=== PATIENT | male | born 1995 | race Caucasian/White ===

== ENCOUNTER 2021-02-17 11:20 | Emergency (ER) | payer BC ==
[2021-02-17] MEDS ORDERED: Sodium Chloride 0.9% 10 ML Syringe FLUSH PRN (11:24)
[2021-02-17] MEDS ORDERED: cefTRIAXone 1 GM in Sodium Chloride 0.9% 50 ML IV STA (12:19)
[2021-02-17] MEDS ORDERED: Meclizine 25 MG Tab PO STA (12:24)
--- NOTE | 2021-02-17 12:25 | EDM.PDOC ---
ED HPI GENERAL MEDICAL PROBLEM - General Chief Complaint: Lower Extremity Injury/Pain Stated Complaint: LEFT LEG PAIN/ DIZZINESS Time Seen by Provider: 02/17/21 11:30 Source of Information: Reports: Patient History Limitations: Reports: No Limitations - History of Present Illness INITIAL COMMENTS - FREE TEXT/NARRATIVE: Patient presented to the ED because of dizziness which started at 2 am, tinnitus, chills. He also c/o left inguinal pain,sharp, worse with movement. He has been lifting 50 lb potato bags at work before the pain occurred. - Related Data Allergies Allergy/AdvReac Type Severity Reaction Status Date / Time No Known Allergies Allergy Verified 02/17/21 11:28 Home Meds: Home Meds Meclizine HCl 25 mg PO Q6H PRN #15 tablet 02/17/21 [Rx] cephALEXin [Keflex] 500 mg PO Q8H #30 cap 02/17/21 [Rx] Review of Systems - Review of Systems Review Of Systems: See Below Constitutional: Reports: No Symptoms Ears: Reports: No Symptoms Nose: Reports: No Symptoms Mouth/Throat: Reports: No Symptoms Respiratory: Reports: No Symptoms Cardiovascular: Reports: No Symptoms GI/Abdominal: Reports: No Symptoms Genitourinary: Reports: No Symptoms Musculoskeletal: Reports: No Symptoms, Leg Pain Skin: Reports: No Symptoms Neurological: Reports: No Symptoms Psychiatric: Reports: No Symptoms ED EXAM, GENERAL - Physical Exam Exam: See Below Exam Limited By: No Limitations General Appearance: Alert, No Apparent Distress Eye Exam: Bilateral Eye: PERRL Ears: Normal External Exam, Normal Canal Nose: Normal Inspection, Normal Mucosa, No Blood Throat/Mouth: Normal Inspection, Normal Lips Head: Atraumatic, Normocephalic Neck: Normal Inspection, Supple, Non-Tender, Full Range of Motion Respiratory/Chest: No Respiratory Distress, Lungs Clear, Normal Breath Sounds, No Accessory Muscle Use, Chest Non-Tender Cardiovascular: Normal Peripheral Pulses, Regular Rate, Rhythm, No Edema, No JVD, No Murmur, No Rub GI/Abdominal: Normal Bowel Sounds, Soft, Non-Tender, No Organomegaly, No Distention, No Abnormal Bruit Back Exam: Normal Inspection, Full Range of Motion Extremities: Normal Inspection, Other (lenderness left thigh-medial aspect) Neurological: Alert, CN II-XII Intact Psychiatric: Normal Affect, Normal Mood Skin Exam: Warm, Erythema Course - Vital Signs Text/Narrative:: Lab/EKG/Head Ct result was reviewed and discussed with patient and his mom Rocephin 1gm IV Meclizine 50 mg PO x1 Last Recorded V/S: Last Vital Signs Temp 36.7 C 02/17/21 11:20 Pulse 97 02/17/21 11:20 Resp 18 02/17/21 11:20 BP 120/53 L 02/17/21 11:20 Pulse Ox 95 02/17/21 11:20 - Orders/Labs/Meds Orders: Active Orders 24 hr Category Date Time Status EKG Documentation Completion [RC] ASDIRECTED Care 02/17/21 11:24 Active Head wo Cont [CT] Stat Exams 02/17/21 11:24 Taken Sodium Chloride 0.9% [Saline Flush] Med 02/17/21 11:24 Active 10 ml FLUSH ASDIRECTED PRN cefTRIAXone [Rocephin] 1 gm Med 02/17/21 12:19 Ordered Sodium Chloride 0.9% [Normal Saline] 50 ml IV NOW Saline Lock Insert [OM.PC] Routine Oth 02/17/21 11:24 Ordered EKG 12 Lead [EK] Routine Ther 02/17/21 11:24 Ordered Medication Orders Sodium Chloride (Sodium Chloride 0.9% 10 Ml Syringe) 10 ml FLUSH ASDIRECTED PRN PRN Reason: Keep Vein Open Meds: Medications Generic Name Dose Route Start Last Admin Trade Name Freq PRN Reason Stop Dose Admin Sodium Chloride 10 ml 02/17/21 11:24 Sodium Chloride 0.9% 10 Ml Syringe FLUSH ASDIRECTED PRN Keep Vein Open Departure - Departure Time of Disposition: 13:00 Disposition: Home, Self-Care 01 Condition: Good Clinical Impression: BPV (benign positional vertigo), Cellulitis, Eczema - Discharge Information Prescriptions: cephALEXin [Keflex] 500 mg PO Q8H #30 cap Meclizine HCl 25 mg PO Q6H PRN #15 tablet PRN Reason: vertigo Instructions: Cellulitis, Adult, [id number] Additional Instructions: Please read discharge instructions on cellulitis, eczema and vertigo Rest for the day Increase oral fluids Meclizine 25 mg every 6 hours as needed for vertigo Keflex 500 mg 3 times daily for 10 days [id number] up as needed Sepsis Event Note (ED) - Evaluation Sepsis Screening Result: No Definite Risk - Focused Exam Vital Signs: Vital Signs Temp Pulse Resp BP Pulse Ox 02/17/21 11:20 36.7 C 97 18 120/53 L 95 - My Orders Last 24 Hours: My Active Orders 02/17/21 11:24 EKG Documentation Completion [RC] ASDIRECTED Head wo Cont [CT] Stat Sodium Chloride 0.9% [Saline Flush] 10 ml FLUSH ASDIRECTED PRN Saline Lock Insert [OM.PC] Routine EKG 12 Lead [EK] Routine 02/17/21 12:19 cefTRIAXone [Rocephin] 1 gm Sodium Chloride 0.9% [Normal Saline] 50 ml IV NOW - Assessment/Plan Last 24 Hours: My Active Orders 02/17/21 11:24 EKG Documentation Completion [RC] ASDIRECTED Head wo Cont [CT] Stat Sodium Chloride 0.9% [Saline Flush] 10 ml FLUSH ASDIRECTED PRN Saline Lock Insert [OM.PC] Routine EKG 12 Lead [EK] Routine 02/17/21 12:19 cefTRIAXone [Rocephin] 1 gm Sodium Chloride 0.9% [Normal Saline] 50 ml IV NOW
--- NOTE | 2021-02-18 04:15 | PCM.EKG ---
#1 Interpretation EKG Date: 02/17/21 Time: 11:53 Rhythm: NSR Rate (Beats/Min): 91 [place]: Normal P-Wave: Present QRS: Normal ST-T: Normal QT: Normal Comparison: NA - No Prior EKG EKG Interpretation Comments: NSR
== END 2021-02-17 13:30 | disposition home or self-care (01) ==
LOC: FB.ED 11:20
DX: H81.10 Benign paroxysmal vertigo, unspecified ear (principal); L03.116 Cellulitis of left lower limb; L30.9 Dermatitis, unspecified
CPT/HCPCS: 70450; 93005; 93010; 96374; 99282; 99284-25; A9270-GY; J0696